=== PATIENT | female | born 1985 | race Caucasian/White ===

== ENCOUNTER 2020-09-28 14:54 | Emergency (ER) | payer SELFPAY ==
[~2020-09-28] VITALS: Ht 160 cm; Wt 65.9 kg
[2020-09-28] MEDS ORDERED: ONDANSETRON ODT 4 MG TAB.RAPDIS PO ONE (15:30)
[2020-09-28] MEDS ORDERED: HYDROcodone/APAP 5/325MG 1 TAB TABLET PO ONE (15:30)
--- NOTE | 2020-09-28 16:07 | RAD ---
XR SHOULDER_RIGHT 2+ VIEWS History: Reason: BLUNT TRAUMA, right shoulder pain / Spl. Instructions: / History: Technique: 3 views right shoulder Comparison: None. Findings: Normal alignment of the right glenohumeral and acromioclavicular joints. No fracture. Impression: 1. No acute osseous abnormality. Electronically signed by: Crow Scott DO (09/28/2020 4:04 PM) [facility]
--- NOTE | 2020-09-28 16:15 | RAD ---
CT HEAD AND C-SPINE WO History: Reason: BLUNT HEAD INJURY, LOC, headache, neck pain / Spl. Instructions: / History: Comparison: None. Technique: Noncontrast CT imaging was performed of the head and cervical spine. Coronal and sagittal reconstructions were performed. Exposure: One or more of the following individualized dose reduction techniques were utilized for thi s examination: 1. Automated exposure control 2. Adjustment of the mA and/or kV according to patient size 3. Use of iterative reconstruction technique. Findings: Head CT: No intracranial hemorrhage. No mass effect. No hydrocephalus. Extra-axial spaces are unrema rkable. Imaged orbits are unremarkable. Imaged paranasal sinuses and mastoid air cells are clear. No acute ca lvarial fracture. Cervical spine CT: Normal vertebral body height and alignment. No fracture. Soft tissues unremarkable. Impression: Head CT: 1. No acute intracranial abnormality. Cervical spine CT: 1. No acute fracture or subluxation of the cervical spine. Electronically signed by: Crow Scott DO (09/28/2020 4:12 PM) [facility]
[2020-09-28] MEDS ORDERED: ONDA4TAB12 PO (17:30)
--- NOTE | 2020-09-28 17:30 | PHYS DOC ---
Past History Past Medical History: Asthma (ELISA LEBRON APRN) Past Surgical History: Other Additional Past Surgical Histo: bladder surgery (ELISA LEBRON APRN) Smoking: Non-smoker Alcohol Use: Occasionally Drug Use: None (ELISA LEBRON APRN) Adult General Chief Complaint Chief Complaint: HEAD INJURY/TRAUMA HPI HPI Patient is a presents to the emergency department stating she was getting a tattoo with a barn door fell on her shoulder and head. Patient states she was told she was knocked out for approximately 30 seconds, patient does not remember being knocked out. Patient states she has had right shoulder pain, pain to the back of her head where the barn door hit her, and right-sided neck pain since the incident. Patient states she has been nauseated but has had no vomiting. Patient states she was initially dizzy however the dizziness has resolved. Patient states she took 800 mg of Motrin at 10 AM today. Patient states she was heading to work when she decided she would need to be seen here instead. Patient denies any back pain, pain to her other extremities, numbness or tingling to her extremities. Patient denies visual changes. Patient denies any recent fever or chills, patient denies any other physical complaints or physical concerns. Patient reports her last menstrual cycle was 3 weeks ago, has no allergies to medications, takes no prescription medications at home. (ELISA LEBRON APRN) Review of Systems Review of Systems 14 body systems of review of systems have been reviewed. See HPI for pertinent positives and negative responses, otherwise all other systems are negative, nonpertinent or noncontributory. (ELISA LEBRON APRN) Current Medications Current Medications Current Medications Medications (Trade) Dose Ordered Sig/Deb Start Time Stop Time Status Last Admin Dose Admin Acetaminophen/ Hydrocodone Bitart (Lortab 5/325) 1 tab 1X ONCE 09/28/20 15:30 09/28/20 15:33 DC 09/28/20 16:16 1 TAB Ondansetron HCl (Zofran Odt) 4 mg 1X ONCE 09/28/20 15:30 09/28/20 15:33 DC 09/28/20 16:47 4 MG (ELISA LEBRON APRN) Allergies Allergies Allergies Coded Allergies Type Severity Reaction Last Updated Verified bee venom protein (honey bee) Allergy Unknown 09/28/20 Yes (ELISA LEBRON APRN) Physical Exam Physical Exam Constitutional: Well developed, well nourished, no acute distress, non-toxic appearance. 35-year-old female in no apparent distress. HENT: Normocephalic, atraumatic, bilateral external ears normal, oropharynx moist, no oral exudates, nose normal. Oropharynx moist, no infectious process appreciated, no lymphadenopathy of the head or neck appreciated. No drooling, no trismus appreciated. No depressions or hematomas or swelling of the skull or scalp. Skin intact. Eyes: PERRLA, EOMI, conjunctiva normal, no discharge. Neck: Normal range of motion, no tenderness, supple, no stridor. No C-spine tenderness, there is tenderness to palpation on the left side of the neck, no nuchal rigidity, no meningismus signs. No step-offs appreciated, no crepitus appreciated, no bruising appreciated. Cardiovascular:Heart rate regular rhythm, heart sounds within normal limits. Lungs & Thorax: Bilateral breath sounds clear to auscultation no adventitious lung sounds appreciated. Abdomen: Bowel sounds normal, soft, no tenderness, no masses, no pulsatile masses. Skin: Warm, dry, no erythema, no rash. Back: No tenderness, no CVA tenderness. Extremities: No tenderness, no cyanosis, no clubbing, ROM intact, no edema. Except for right shoulder, pain to palpation on anterior and superior aspect of shoulder, patient full AROM/PROM without elicited pain. Distal cap refill less than 2 seconds, +2 radial pulse. No ecchymosis area of of the shoulder appreciated Neurologic: Alert and oriented X 3, normal motor function, normal sensory function, no focal deficits noted. Psychologic: Affect normal, judgement normal, mood normal. (ELISA LEBRON APRN) Current Patient Data Vital Signs Vital Signs Date Time Temp Pulse Resp B/P (MAP) Pulse Ox O2 Delivery O2 Flow Rate FiO2 09/28/20 16:16 14 Room Air 09/28/20 15:17 98.8 95 155/111 (126) 97 (ELISA LEBRON APRN) EKG EKG [] (ELISA LEBRON APRN) Radiology/Procedures Radiology/Procedures PATIENT: STEFANIE AMAYA ACCOUNT: [id number] : 1985 LOCATION: ER AGE: 35 SEX: F EXAM STATUS: REG ER ORD. PHYSICIAN: ELISA LEBRON APRN REASON: BLUNT TRAUMA, right shoulder pain PROCEDURE: SHOULDER 2+V RIGHT XR SHOULDER_RIGHT 2+ VIEWS History: Reason: BLUNT TRAUMA, right shoulder pain / Spl. Instructions: / History: Technique: 3 views right shoulder Comparison: None. Findings: Normal alignment of the right glenohumeral and acromioclavicular joints. No fracture. Impression: 1. No acute osseous abnormality. Electronically signed by: Crow Scott DO (09/28/2020 4:04 PM) [facility] DICTATED AND SIGNED BY: CROW SCOTT DO DATE: 09/28/20 160 CC: ELISA LEBRON APRN; PCP,NO ~MTH0 0 PATIENT: STEFANIE AMAYA ACCOUNT: [id number] : 1985 LOCATION: ER AGE: 35 SEX: F EXAM STATUS: REG ER ORD. PHYSICIAN: ELISA LEBRON APRN REASON: BLUNT HEAD INJURY, LOC, headache, neck pain PROCEDURE: CT HEAD AND CERVICAL SPINE WO CT HEAD AND C-SPINE WO History: Reason: BLUNT HEAD INJURY, LOC, headache, neck pain / Spl. Instructions: / History: Comparison: None. Technique: Noncontrast CT imaging was performed of the head and cervical spine. Coronal and sagittal reconstructions were performed. Exposure: One or more of the following individualized dose reduction techniques were utilized for this examination: 1. Automated exposure control 2. Adjustment of the mA and/or kV according to patient size 3. Use of iterative reconstruction technique. Findings: Head CT: No intracranial hemorrhage. No mass effect. No hydrocephalus. Extra- axial spaces are unremarkable. Imaged orbits are unremarkable. Imaged paranasal sinuses and mastoid air cells are clear. No acute calvarial fracture. Cervical spine CT: Normal vertebral body height and alignment. No fracture. Soft tissues unremarkable. Impression: Head CT: 1. No acute intracranial abnormality. Cervical spine CT: 1. No acute fracture or subluxation of the cervical spine. Electronically signed by: Crow Scott DO (09/28/2020 4:12 PM) [facility] DICTATED AND SIGNED BY: CROW SCOTT DO DATE: 09/28/20 1606 CC: ELISA LEBRON APRN; PCP,NO ~MTH0 0 (ELISA LEBRON APRN) Heart Score C/O Chest Pain: No Risk Factors: Risk Factors: DM, Current or recent (<one month) smoker, HTN, HLP, family history of CAD, obesity. Risk Scores: Risk Factors: DM, Current or recent (<one month) smoker, HTN, HLP, family history of CAD, obesity. (ELISA LEBRON APRN) Course & Med Decision Making Course & Med Decision Making Pertinent Labs and Imaging studies reviewed. (See chart for details) 35-year-old female, vital signs reviewed, presents emergency department for reporting a barn door fell on her head and right shoulder. Physical examination was unremarkable, a CT head and C-spine without contrast along with x-ray imaging of the right shoulder was ordered. Patient was given 4 mg Zofran for nausea. Patient was given 1 hydrocodone tablet 5 mg / 325 mg for pain of 7/10 on a 1-[address] imaging of head and C-spine along with shoulder x-ray negative for acute process. Reexamination of the patient, patient reports she is now pain-free, patient remains alert and oriented x3, nontoxic in appearance. Discussed diagnosis of shoulder contusion, closed head injury with concussion. Discussed with patient need to follow-up with primary care for ongoing evaluation of her concussive type symptoms. Patient will be given a primary care provider to follow-up with. Patient gave verbal understanding of discharge home instructions, follow-up with primary care, return to ER precautions and concerns, was discharged home without incident. Patient was given a work excuse for today may return to work tomorrow. (ELISA LEBRON APRN) Course & Med Decision Making I oversaw on the above date of service of this patient and discussed the care with the SALES ARCHITECT. I agree with the findings, plan of care, and disposition as documented. Electronically signed, Mindy Yuen DO (MINDY YUEN DO) Gary Disclaimer Dragon Disclaimer This electronic medical record was generated, in whole or in part, using a voice recognition dictation system. (ELISA LEBRON APRN) Departure Departure: Impression: Primary Impression: Contusion of right shoulder Additional Impressions: Scalp contusion Closed head injury without concussion Disposition: 01 DC HOME SELF CARE/HOMELESS Condition: GOOD Referrals: PCP,GOMEZ (PCP) REGGIE DIGGS Patient Instructions: Concussion and Brain Injury, Contusion Additional Instructions: Please take medications as prescribed, and given you today off of work, you may return to regular work tomorrow. We have spoke about you arranging a primary care provider to follow your concussive type injury. Please see the provider I have recommended or one of your choice this week. Return to the emergency department for worsening symptoms or other concerns EMERGENCY DEPARTMENT GENERAL DISCHARGE INSTRUCTIONS Thank you for coming to [facility] (ED) today and trusting us with you care. We trust that you had a positivie experience in our Emergency Department. If you wish to speak to the department management, you may call the director at [phone]. YOUR FOLLOW UP INSTRUCTIONS ARE FOLLOWS: 1. Do you have a private Doctor? If you do not have a private doctor, please ask for a resource list of physicians or clinics that may be able to assist you with follow up care. 2. The Emergency Physician has interpreted your x-rays. The X-Ray specialist will also review them. If there is a change in the findings, you will be notified in 48 hours when at all possible. 3. A lab test or culture has been done, your results will be reviewed and you will be notified if you need a change in treatment. ADDITIONAL INSTRUCTIONS AND INFORMATION: 1. Your care today has been supervised by a physician who is specially trained in emergency care. Many problems require more than one evaluation for a complete diagnosis and treatment. We recommend that you schedule your follow up appointment as recommended to ensure complete treatment of you illness or injury. If you are unable to obtain follow up care and continue to have a problem, or if your condition worsens, we recommend that you return to the ED. 2. We are not able to safely determine your condition over the phone nor are we able to give sound medical advice over the phone. For these safety reasons, if you call for medical advice we will ask you to come to the ED for further evaluation. 3. If you have any questions regarding these discharge instructions please call the ED at [phone]. SAFETY INFORMATION: In the interest of safety, wellness, and injury prevention; we encourage you to wear your sealbelt, if you smoke; quite smoking, and we encourage family to use a prote ctive helmet for bicycling and other sporting events that present an increased risk for head injury. IF YOUR SYMPTOMS WORSEN OR NEW SYMPTOMS DEVELOP, OR YOU HAVE CONCERNS ABOUT YOUR CONDITION; OR IF YOUR CONDITION WORSENS WHILE YOU ARE WAITING FOR YOUR FOLLOW UP APPOINTMENT; EITHER CONTACT YOUR PRIMARY CARE DOCTOR, THE PHYSICIAN WHOSE NAME AND NUMBER YOU WERE GIVEN, OR RETURN TO THE ED IMMEDIATELY. Scripts Ondansetron (ONDANSETRON ODT) 4 Mg Tab.rapdis 1 TAB PO PRN Q6-8HRS for NAUSEA, #16 TAB Prov: ELISA LEBRON APRN 09/28/20 Problem Qualifiers Primary Impression: Contusion of right shoulder Encounter type: initial encounter Qualified Codes: S40.011A - Contusion of right shoulder, initial encounter Additional Impressions: Scalp contusion Encounter type: initial encounter Qualified Codes: S00.03XA - Contusion of scalp, initial encounter Closed head injury without concussion Encounter type: initial encounter Qualified Codes: S09.90XA - Unspecified injury of head, initial encounter ELISA LEBRON APRN Sep 28, 2020 17:30 MINDY YUEN DO Sep 29, 2020 21:34
[2020-09-28 18:07] VITALS: BP 163/79
== END 2020-09-28 17:53 | disposition home or self-care (01) ==
LOC: ER 14:54
DX: S40.011A Contusion of right shoulder, initial encounter (principal); S00.03XA Contusion of scalp, initial encounter; J45.909 Unspecified asthma, uncomplicated; M54.2 Cervicalgia; R42 Dizziness and giddiness; Z91.030 Bee allergy status; W20.8XXA Other cause of strike by thrown, projected or falling object, initial encounter; Y93.89 Activity, other specified; Y92.89 Other specified places as the place of occurrence of the external cause; Y99.8 Other external cause status
CPT/HCPCS: 70450; 72125; 73030; 99285; Q0162

== ENCOUNTER 2021-10-11 17:24 | Emergency (ER) | payer SELFPAY ==
[~2021-10-11] VITALS: Ht 160 cm; Wt 65.9 kg
[~2021-10-11 17:24] MED LIST: ONDA4TAB12 PO
--- NOTE | 2021-10-11 18:05 | PHYS DOC ---
Past History Past Medical History: Asthma Past Surgical History: Other Additional Past Surgical Histo: bladder surgery Smoking: Non-smoker Alcohol Use: Occasionally Drug Use: None General Adult EDM: Chief Complaint: HAND PROBLEM HPI: HPI: ".. I was out with family last night.. and had too many drinks.. way too many... well anyway .. I stumble and fell... I tried to catch my self.. and hurt this Rt. hand... but it is no better after rest all day.. " Patient is a 36 year old female who presents with above hx and complaints of FOOSH injury to right hand injury. Obvious swelling of right hand. Pain with movement of right hand. There are some localization to the lateral side of right hand and loading of fifth finger. Distal capillary refill is equal to the other fingers and the hand. Patient denies any upper arm injury. He does have a few abrasions and other areas of body knee on right. Patient has taken ibupr ofen with no relief of pain earlier today. Patient is right-hand dominant. No recent travel. No immunosuppression. Denies . No specific ill contacts. Patient does smoke. And use alcohol patient denies other drug use. Review of Systems: Review of Systems: Constitutional: Denies fever or chills Eyes: Denies change in visual acuity HENT: Denies nasal congestion or sore throat Respiratory: Denies cough or shortness of breath Cardiovascular: Denies chest pain or edema GI: Denies abdominal pain, nausea, vomiting, bloody stools or diarrhea : Denies dysuria Musculoskeletal: Complains of right hand pain Integument: Denies rash Neurologic: Denies headache, focal weakness or sensory changes Endocrine: Denies polyuria or polydipsia Lymphatic: Denies swollen glands Psychiatric: Denies depression or anxiety Family History: Family History: Noncontributory the presentation s Current Medications: Current Meds: See nursing for home meds Allergies: Allergies: Allergies Coded Allergies Type Severity Reaction Last Updated Verified bee venom protein (honey bee) Allergy Unknown 09/28/20 Yes Physical Exam: PE: Constitutional: Well developed, well nourished, moderate acute distress, non- toxic appearance. [] HENT: Normocephalic, atraumatic, bilateral external ears normal, oropharynx moist, no oral exudates, nose normal. [] Eyes: PERRLA, EOMI, conjunctiva normal, no discharge. Glasses Neck: Normal range of motion, no tenderness, supple, no stridor. [] Cardiovascular:Heart rate regular rhythm, no murmur [] Lungs & Thorax: Bilateral breath sounds clear to auscultation [] Abdomen: Bowel sounds normal, soft, no tenderness, no masses, no pulsatile masses. [] Skin: Warm, dry, no erythema, no rash. [] Back: No tenderness, no CVA tenderness. [] Extremities: No tenderness, no cyanosis, no clubbing, ROM intact, no edema. [] Except for right hand injury as per HPI Neurologic: Alert and oriented X 3, normal motor function, normal sensory function, no focal deficits noted. [] Psychologic: Affect anxious, judgement normal, mood normal. [] Current Patient Data: Vital Signs: Vital Signs Date Time Temp Pulse Resp B/P (MAP) Pulse Ox O2 Delivery O2 Flow Rate FiO2 10/11/21 17:29 98.2 82 18 142/103 (116) 97 Room Air EKG: EKG: [] Radiology/Procedures: Radiology/Procedures: [][address] [address] IMAGING REPORT Signed PATIENT: STEFANIE AMAYA ACCOUNT: [id number] : 1985 LOCATION: ER AGE: 36 SEX: F EXAM STATUS: REG ER ORD. PHYSICIAN: RACHEL CHRISTIANSON MD REASON: fall last night PROCEDURE: HAND RIGHT 3V XR HAND_RIGHT 3 VIEWS DATE: 10/11/2021 6:05 PM INDICATION: Pain, fall last night COMPARISON: None. FINDINGS: Bones: There is no evidence of acute fracture or dislocation. Joints: The joint spaces are normal. Miscellaneous: None. IMPRESSION: No evidence of acute fracture. Electronically signed by: Huan Dumont MD (10/11/2021 7:08 PM) [facility] DICTATED AND SIGNED BY: HUAN DUMONT MD DATE: 10/11/21 190 CC: RACHEL CHRISTIANSON MD; PCP,NO ~ Heart Score: C/O Chest Pain: N/A Risk Factors: Risk Factors: DM, Current or recent (<one month) smoker, HTN, HLP, family history of CAD, obesity. Risk Scores: Score 0 - 3: 2.5% MACE over next 6 weeks - Discharge Home Score 4 - 6: 20.3% MACE over next 6 weeks - Admit for Clinical Observation Score 7 - 10: 72.7% MACE over next 6 weeks - Early Invasive Strategies Course & Med Decision Making: Course & Med Decision Making Pertinent Labs and Imaging studies reviewed. (See chart for details) Ice, elevation, rest, splint, and follow-up primary care orthopedics. If you do not have an orthopedics doctor consider [facility] at [phone]. Impression: 1. Trip and fall 2. History of alcohol intoxication 3. FOOSH injury right hand [] Dragon Disclaimer: Dragon Disclaimer: This electronic medical record was generated, in whole or in part, using a voice recognition dictation system. Departure Departure: Referrals: PCP,NO (PCP) Dragon Disclaimer This chart was dictated in whole or in part using Voice Recognition software in a busy, high-work load, and often noisy Emergency Department environment. It may contain unintended and wholly unrecognized errors or omissions. RACHEL CHRISTIANSON MD Oct 11, 2021 18:05
[2021-10-11] MEDS ORDERED: HYDROcodon/IBUPROFEN 7.5/200MG 1 TAB TABLET PO ONE (18:15)
[2021-10-11] MEDS ORDERED: IV RINGERS SOLUTION,LACTATED 1,000 ML IV SCH (18:30)
[2021-10-11] MEDS ORDERED: ALBUTEROL SULFATE 8GM INHALER. INH ONE (18:30)
--- NOTE | 2021-10-11 19:10 | RAD ---
XR HAND_RIGHT 3 VIEWS DATE: 10/11/2021 6:05 PM INDICATION: Pain, fall last night COMPARISON: None. FINDINGS: Bones: There is no evidence of acute fracture or dislocation. Joints: The joint spaces are normal. Miscellaneous: None. IMPRESSION: No evidence of acute fracture. Electronically signed by: Chiki Gonzalez MD (10/11/2021 7:08 PM) [facility]
[2021-10-11 19:33] VITALS: BP 131/88
== END 2021-10-11 19:33 | disposition home or self-care (01) ==
LOC: ER 17:24
DX: S69.91XA Unspecified injury of right wrist, hand and finger(s), initial encounter (principal); J45.909 Unspecified asthma, uncomplicated; F10.129 Alcohol abuse with intoxication, unspecified; Y90.9 Presence of alcohol in blood, level not specified; W01.0XXA Fall on same level from slipping, tripping and stumbling without subsequent striking against object, initial encounter; Y93.89 Activity, other specified; Y92.89 Other specified places as the place of occurrence of the external cause; Y99.8 Other external cause status
CPT/HCPCS: 29125; 73130; 99283